=== PATIENT | female | born 1970 | race Caucasian/White ===

== ENCOUNTER 2017-10-01 07:36 | Day surgery (SDC) | payer BC ==
[~2017-10-01 07:36] MED LIST: ACETAMINOPHEN 1,000 MG/100 ML BTL IV ONE; CLINDAMYCIN PHOS/D5W 900MG 900 MG/50 ML BAG IVPB ONE; FAMOTIDINE 20MG TABLET PO ONE; MECLIZINE 25 MG TABLET PO ONE; METOCLOPRAMIDE 10 MG TABLET PO ONE
[2017-10-01] MEDS ORDERED: FENTANYL PF 100MCG/2ML VIAL IV ONE (07:37)
[2017-10-01] MEDS ORDERED: *PACU ONLY* KETAMINE HCL 10 MG/ML (20ML) VIAL IV ONE (07:37)
[2017-10-01] MEDS ORDERED: DEXAMETHASONE 4 MG/ML 1ML VIAL IVP ONE (07:37)
[2017-10-01] MEDS ORDERED: KETOROLAC 30 MG/ML VIAL IVP ONE (07:37)
[2017-10-01] MEDS ORDERED: ROPIVACAINE HCL (NAROPIN) /PF 5MG/ML 20ML VIAL IV ONE (07:37)
[2017-10-01] MEDS ORDERED: PROPOFOL 10 MG/ML VIAL IV ONE (07:37)
[2017-10-01] MEDS ORDERED: METHYLPREDNISOLONE 40MG/VIAL IM ONE (07:37)
[2017-10-01] MEDS ORDERED: ONDANSETRON HCL IV 4 MG/2 ML VIAL IVP ONE (07:37)
[2017-10-01] MEDS ORDERED: MORPHINE SULFATE PF 10MG/10ML VIAL IV ONE (07:37)
[2017-10-01] MEDS ORDERED: MIDAZOLAM HCL 2MG/2ML VIAL IV ONE (07:37)
[2017-10-01] MEDS ORDERED: BUPIVACAINE 0.75% W/EPI MPF 30ML VIAL IVP ONE (07:37)
--- NOTE | 2017-10-01 23:08 | Operative Note ---
DATE: 10/01/17. PREOPERATIVE DIAGNOSIS: SEVERE IMPINGEMENT SYNDROME RIGHT SHOULDER. QUESTION TEAR OF THE ROTATOR CUFF. POSTOPERATIVE DIAGNOSES: 1. TEAR OF THE ROTATOR CUFF ON THE RIGHT. 2. COMPLEX ANTERIOR/SUPERIOR GLENOHUMERAL LABRAL TEAR WITH PARTIAL TEAR OF THE ROTATOR CUFF INTERNALLY. 3. PROFOUND EXTERNAL IMPINGEMENT RIGHT SHOULDER. 4. ARTHROSIS RIGHT DISTAL CLAVICLE. PROCEDURE: 1. REPAIR OF A CHRONICALLY TORN RIGHT ROTATOR CUFF TEAR. 2. RIGHT SHOULDER ARTHROSCOPY WITH INTERARTICULAR DEBRIDEMENT. 3. RIGHT SHOULDER OPEN ACROMIOPLASTY, CA LIGAMENT RESECTION, SUBACROMIAL BURSECTOMY. 4. RIGHT SHOULDER DISTAL CLAVICLE RESECTION. STAFF SURGEON: ROMERO SAN M.D. ANESTHESIA: GENERAL. PREPARATION: CHLORAPREP. INDIVIDUAL CONSIDERATIONS: NONE. PROCEDURE: The patient was taken to the Operating Room and placed supine on the operating table. She had a successful induction of a general anesthetic. She was placed in a semi-seated beach chair position and her right upper extremity was prepped and draped in the usual fashion. Examination under anesthesia showed no instability. The patient had a posterior portal identified for arthroscopy. The skin was infiltrated with 0.5% Marcaine with Epinephrine prior. An #18 gauge spinal needle was then placed in the joint and the joint was inflated with normal saline with a 60 mL syringe. A stab wound was made and a blunt tip trocar for the scope was placed inside the joint and the joint was inflated with normal saline. An anterior accessory portal was then made just inferior to the intact long head of the biceps tendon in a retrograde fashion with a Wissinger sal and the joint was irrigated out. She had unstable strands of supraspinatus hanging down. These were smoothed off with a shaver but underneath this looked complete. There was some superior glenohumeral labral tearing anterior/superiorly just anterior to the long head insertion, which was otherwise intact. The glenohumeral joint was normal. No significant synovitis. Subscapularis tendon was normal. No loose bodies were seen. After irrigation, portals were closed with sheila. The patient had an anterior approach to the subacromial space and distal clavicle. The skin was infiltrated with 0.5% Marcaine with Epinephrine prior. Sharp dissection carried down through the skin and subcutaneous tissue. Small veins were coagulated with a Bovie. An anterior deltoid interval was developed. Care was taken not to split the deltoid more than about 4 cm distal to the anterior tip of the acromion to prevent injury to the axillary nerve. Once in the subacromial space, there was a large grace of fluid consistent with a tear. The deltoid was then taken subperiosteally off the anterior aspect of the distal clavicle. Over the top of the intact CA ligament and off the anterior aspect of the degenerated distal clavicle and acromion. The CA ligament was resected. The distal clavicle was resected using an oscillating saw taking roughly about 6 to 7 mm tapering to wedge posteromedially to include the spurs at the AC joint. The undersurface was then smoothed with a rasp. A big thick bursa was debrided out. I now had a good look at the rotator cuff. She had an incomplete oblique tear basically of the infraspinatus. This was reapproximated with buried knot 3-0 Vicryl suture. There was also a hole at the interval between the subscapularis and the supraspinatus, which looked chronic. This was about 1 cm and this was fixed [id number] after freshening it to bleeding tendon with buried knot 3-0 Vicryl suture. The shoulder was placed through a full range of motion to ensure no further impingement. After irrigation, the deltoid was reattached to the remaining acromion with multiple interrupted #2 Vicryl going directly through the bony acromion. The anterior deltoid interval was closed with a running #1 Vicryl. The subcu was closed with 2-0 Plus Vicryl and the skin was closed with running 2-0 Quill. Sterile Bulkee compressive Aquacel-type dressing was applied. Prior to this, I did inject the subacromial space with 10 mL of 0.5% Marcaine with Epinephrine along with 20 mg of Depo- Medrol and 5 mg of Morphine. The patient tolerated the procedure well. Needle and sponge counts were correct, estimated blood loss was minimal, and she was taken back to Recovery in good condition. There were no complications. cc: Dr. Sherrell Newman JOB NUMBER: [id number] MTDD
== END 2017-10-01 12:55 | disposition home or self-care (01) ==
LOC: SUR 07:36
PROVIDERS: ATTEND Orthopaedic Surgery
DX: M75.121 Complete rotator cuff tear or rupture of right shoulder, not specified as traumatic (principal); M75.41 Impingement syndrome of right shoulder; M19.211 Secondary osteoarthritis, right shoulder
CPT/HCPCS: 23412; 23120; 29822; 64415; 01630; J1885; J2405; J3010; J2795; J3490 ×2; J1030